=== PATIENT | male | born 1970 | race Caucasian/White ===

== ENCOUNTER 2017-04-01 21:33 | Emergency (ER) | payer MEDICARE ==
[~2017-04-01] VITALS: Ht 175.3 cm; Wt 99.8 kg
[2017-04-01] MEDS ORDERED: IBUP-1955 PO (21:55)
[2017-04-01] MEDS ORDERED: HYDROMORPHONE 1 MG/1 ML DISP.SYRIN IM ONE (22:15)
[2017-04-01] MEDS ORDERED: PROMETHAZINE HCL 25 MG/1 ML VIAL IM ONE (22:15)
[2017-04-01] MEDS ORDERED: PROMETHAZINE HCL 25 MG/1 ML VIAL ONE (22:20)
[2017-04-01] MEDS ORDERED: HYDROMORPHONE 2 MG/1 ML DISP.SYRIN ONE (22:20)
[2017-04-01 22:31] LABS: *BILIRUBIN,URIN NEGATIVE (NEGATIVE); *BLOOD, URINE NEGATIVE (NEGATIVE); *CLARITY,URINE CLEAR (CLEAR); *COLOR,URINE YELLOW (YELLOW); *KETONES,URINE NEGATIVE (NEGATIVE); *PROTEIN,URINE NEGATIVE (NEGATIVE); *UROBILINOGEN,URINE 0.2 E.U./dl (NORMAL); LEUKOCYTE ESTERASE ,URINE NEGATIVE (NEGATIVE); NITRITE, URINE NEGATIVE (NEGATIVE); UGLUCOSE NEGATIVE (NEGATIVE)
[2017-04-01 22:38] LABS: BACTERIA,URINE NONE SEEN /HPF (NONE SEEN); MUCUS,URINE FEW /LPF (0-FEW); RBC,URINE 0-3 /HPF (0-3); SQUAMOUS EPITHELIAL CELL,UR FEW /HPF (NONE SEEN); WBC,URINE 0-3 /HPF (0-3)
--- NOTE | 2017-04-01 23:00 | NUR ---
PATIENT IN ROOM RESTING WITH NO DISTRESS NOTED
--- NOTE | 2017-04-02 00:07 | NUR ---
Patient discharged to home in stable conditon WITH TAKING PATIENT HOME. Written and verbal after care instructions given. Patient verbalizes understanding of instructions. WALKEDOUT OF ER WITH NO DISTRESS NOTED
[2017-04-02 00:08] VITALS: BP 135/85
== END 2017-04-02 00:08 | disposition home or self-care (01) ==
LOC: ER 21:36
DX: M54.6 Pain in thoracic spine (principal)
CPT/HCPCS: 72072; 81001; 96372 ×2; 99285; A4663; J1170; J2550